=== PATIENT | female | born 1995 | race Caucasian/White ===

== ENCOUNTER 2017-09-01 15:43 | Emergency (ER) | payer BC, OTHER ==
[2017-09-01 15:47] VITALS: BP 141/91; PULSE 92; RESP 16; TEMP 98.1; O2SAT 97
--- NOTE | 2017-09-01 16:14 | EDPHY ---
H & P Stated Complaint: Slipped on ice;hit head. No LOC;wants to get checked out - Personal History LMP (Females 10-55): Now Current Tetanus Diphtheria and Acellular Pertussis (TDAP): Yes Tetanus Vaccine Date: < 10 YEARS - Medical/Surgical History Hx Asthma: No Hx Chronic Respiratory Disease: No Hx Diabetes: No Hx Cardiac Disease: No Hx Renal Disease: No Hx Cirrhosis: No Hx Alcoholism: No Hx HIV/AIDS: No Hx Splenectomy or Spleen Trauma: No Other PMH: ANXIETY. concussions in the past - Social History Smoking Status: Never smoked Time Seen by Provider: 09/01/17 15:59 HPI/ROS: CHIEF COMPLAINT: Slipped on ice, hit left occiput HISTORY OF PRESENT ILLNESS: 22-year-old female with history of multiple blunt traumatic head injuries in the past, no history of CT imaging of the head, no intracranial hemorrhage history,, was walking to work this morning, slipped on the ice and fell backward impacting the left occiput of her head. No loss of consciousness. Approximately an hour developed a non thunderclap headache which is not become progressively worse but does continue. She is complaining of non thunderclap headache, she is complaining of photophobia. She denies: Vomiting, nausea, midline C-spine pain, alcohol or drug use at time of incident , amnesia REVIEW OF SYSTEMS: A ten point review of systems was performed and is negative with the exception of the items mentioned in the HPI PAST MEDICAL/SURGICAL HISTORY: No anticoagulant use. SOCIAL HISTORY: denies alcohol use at time of incident PHYSICAL EXAM 1) GENERAL: Well-developed, well-nourished, alert and oriented. GCS 15 Answering questions appropriately. 2) HEAD: Normocephalic, atraumatic 3) HEENT: Wearing sunglasses, sunglasses removed. Positive photophobia. Pupils equal, round, reactive to light bilaterally. Negative Horners. Nasopharynx, oropharynx, clear. No deformity or angulation of nose. No septal hematoma. No rhinorrhea. No oral trauma. Ears bilaterally with normal tympanic membranes. No hemotympanum. No fluid or blood in the external auditory canal. No raccoon eyes. No Gonzalez sign. Teeth are normally aligned with no gross malocclusion, TMJ bilaterally nontender, facial bones nontender including the zygomatic arch, maxilla mandible. 4) NECK: No cervical collar is on. Posterior cervical spine is nontender, no stepoff, no effusion. Full range of motion which does not elicit any midline cervical spine pain, no posterior midline tenderness, no step-off. 5) LUNGS: Clear to auscultation bilaterally, no wheezes, no rhonchi, no retractions. No obvious signs of trauma. No chest wall pain. No flaring, no grunting. Moving symmetrically. No crepitus. 6) HEART: [Regular rate and rhythm, 7) ABDOMEN: No guarding, no rebound, no focal tenderness, no peritoneal signs, no signs of trauma, no ecchymosis 8) MUSCULOSKELETAL: Moving all extremities, no focal areas of tenderness, no obvious trauma. 9) BACK: Patient logrolled while holding inline traction.No midline vertebral tenderness, no fluctuance, no step-off, no obvious trauma, no visual or palpable abnormality. 10) SKIN: No laceration. No abrasion 11) NEURO: Awake, alert, and oriented to person, place and time. Answers questions appropriately. There were no obvious focal neurologic abnormalities. No cerebellar dysfunction. Cranial nerves 2 through to 12 intact. Normal steady gait. Upper and lower extremities bilaterally with strength 5 / 5, reflexes 2+. DIFFERENTIAL DIAGNOSIS: Not necessarily in any particular order, my differential diagnosis includes, but is not limited to, concussion, skull fracture, intraparenchymal contusion, subarachnoid, subdural and epidural hematoma. The patient understands that this diagnosis is provisional and can never be 100% accurate. (Steve Merlos) Constitutional: Initial Vital Signs Temperature (C) 36.7 C 09/01/17 15:45 Heart Rate 92 09/01/17 15:45 Respiratory Rate 16 09/01/17 15:45 Blood Pressure 141/91 H 09/01/17 15:45 O2 Sat (%) 97 09/01/17 15:45 O2 Delivery Mode Room Air Allergies/Adverse Reactions: PENICILLIN Allergy (Intermediate, Uncoded 09/01/17 15:44) Hives Home Medications: Medication Instructions Recorded Control Pills 09/01/17 FLUoxetine [PROzac] 10 mg PO 09/01/17 Medical Decision Making ED Course/Re-evaluation: 4:12 p.m.: This patient has understandably expressed concern over history of multiple head injuries all do traumatic mechanisms, no history of CT imaging the head, no history of intracranial hemorrhage or skull fracture. We discussed the potential long-term complications of multiple blunt head injuries. At this time she has negative Posey head CT imaging rules, no evidence of a basilar skull fracture, low index of suspicion for open or depressed skull fracture, no vomiting, GCS 15. I therefore do not think that the benefits of CT imaging outweigh the risks. She did however requests to speak with her mother via telephone. Care of patient under supervision of secondary supervising physician Dr Roberta Leon. 4:30 p.m.: Patient requested I speak with her mother via telephone. The patient consented to disclose medical information to her mother. Spoke with mother at this time on the patient's cell phone. After lengthy discussion with the patient mother, they are agreement about my recommendation is an feel comfortable being discharged with usual and customary head injury precautions and instructions. (Steve Merlos) Other Provider: The patient was evaluated and managed by the Physician Clerk Rating. My co- signature indicates that I have reviewed this chart and I agree with the findings and plan of care as documented. I am the secondary supervising physician. (Roberta Leon) Departure - Departure Disposition: Home, Routine, Self-Care Clinical Impression: Head injury, Fall from slipping on ice Condition: Good Instructions: Head Injury (ED) Additional Instructions: ALTHOUGH THERE IS NO EVIDENCE OF SERIOUS HEAD INJURY AT THIS TIME, DELAYED SIGNS CAN APPEAR 24 TO 48 HOURS AFTER INJURY. PLEASE RETURN TO THE EMERGENCY DEPARTMENT (ED) IMMEDIATELY IF YOU HAVE INCREASED HEADACHE, PERSISTENT HEADACHE , VOMITING, WEAKNESS, CONFUSION OR VISUAL PROBLEMS. WE RECOMMEND THAT YOU DO NOT RESUME CONTACT SPORTS OR ACTIVITIES THAT TAKE COORDINATION OR BALANCE SUCH SKIING OR RIDING A BICYCLE UNTIL CLEARED TO DO SO BY YOUR DOCTOR OR BY A NEUROLOGIST. Referrals: Latoya Fang MD [Medical Doctor] - 2-3 days, call for appt.
== END 2017-09-01 16:38 | disposition home or self-care (01) ==
DX: S09.90XA Unspecified injury of head, initial encounter (principal); W01.198A Fall on same level from slipping, tripping and stumbling with subsequent striking against other object, initial encounter; Y99.8 Other external cause status; Y93.01 Activity, walking, marching and hiking

== ENCOUNTER 2018-09-03 03:04 | Emergency (ER) | payer OTHER ==
--- NOTE | 2018-09-03 03:25 | EDPHY ---
H & P Stated Complaint: WOKE 1 HR AGO WITH RLQ PAIN, Time Seen by Provider: 09/03/18 03:15 HPI/ROS: Chief Complaint: Abdominal pain HPI: 23-year-old woman woke this morning with right lower abdominal pain. Patient has been having some abdominal cramping for the last few days. She thought that was secondary to her menstrual. Which is due in 1 week. She then had developed onset of severe right sided mid abdominal pain. Some nausea no vomiting. No fevers or chills. It hurts to move or walk. No vaginal discharge or bleeding. Does not believe she is . No fevers or chills. No cough. ROS: 10 systems were reviewed and were negative except those elements noted in the HPI. PMH: Anxiety Social History: No smoking Family History: non-contributory Physical Exam: Gen: Awake, Alert, No Distress HEENT: Nose: no rhinorrhea Eyes: PERRLA, EOMI Mouth: Moist mucosa Neck: Supple, no JVD Chest: nontender, lungs clear to auscultation Heart: S1, S2 normal, no murmur Abd: Soft, moderate right mid abdominal tenderness, no adnexal tenderness, no guarding Back: no CVA tenderness, no midline tenderness Ext: no edema, non-tender Skin: no rash Neuro: CN II-XII intact, Sensation grossly intact, Strength 5/5 in bilateral upper and lower extremities - Personal History LMP (Females 10-55): 15-21 Days Ago Current Tetanus/Diphtheria Vaccine: Yes Current Tetanus Diphtheria and Acellular Pertussis (TDAP): Yes Tetanus Vaccine Date: < 10 YEARS - Medical/Surgical History Hx Asthma: No Hx Chronic Respiratory Disease: No Hx Diabetes: No Hx Cardiac Disease: No Hx Renal Disease: No Hx Cirrhosis: No Hx Alcoholism: No Hx HIV/AIDS: No Hx Splenectomy or Spleen Trauma: No Other PMH: ANXIETY. concussions in the past - Social History Smoking Status: Never smoked Constitutional: Initial Vital Signs Temperature (C) 36.8 C 09/03/18 03:10 Heart Rate 92 09/03/18 03:10 Respiratory Rate 18 09/03/18 03:10 Blood Pressure 133/92 H 09/03/18 03:10 O2 Sat (%) 97 09/03/18 03:10 O2 Delivery Mode Room Air Allergies/Adverse Reactions: PENICILLIN Allergy (Intermediate, Uncoded 09/03/18 03:12) Hives Home Medications: Medication Instructions Recorded Control Pills 09/01/17 FLUoxetine [PROzac] 10 mg PO 09/01/17 Medical Decision Making - Diagnostics Imaging Results: Right lower quadrant ultrasound shows a nonvisualized appendix with mildly enlarged lymph nodes in the right lower quadrant. Study interpreted by Dr. Debby Patel, direct Radiology. ED Course/Re-evaluation: 23-year-old with right side abdominal pain. No adnexal tenderness. HCG is positive but her quantitative is only 75. For below the discriminatory zone were expect to see anything on ultrasound. She will need repeat HCG in 2 days for recheck. I am awaiting the right lower quadrant ultrasound results. Abdomen is soft and otherwise benign. Ultrasound is negative. She is not leukocytosis. Repeat exam shows a soft benign abdomen. She does have some stool in the cecum and some lymph nodes. Plan will be for discharge with follow-up with her OBGYN in 2 days for recheck of her quantitative HCG. She will return sooner for pain is not improved. Do not have a clear picture of the cause of her abdominal pain at this time. IVC cannot be obtaining a CT scan given her status. Her exam and laboratory evaluations reassuring. She has been cautioned to return in 12-24 hours for recheck if symptoms are not improving. - Data Points Laboratory Results: Laboratory Results 09/03/18 03:20 09/03/18 03:20 09/03/18 09/03/18 09/03/18 03:20 03:20 03:20 WBC 8.62 10^3/uL 10^3/uL (3.80-9.50) RBC 4.51 10^6/uL 10^6/uL (4.18-5.33) Hgb 14.0 g/dL g/dL (12.6-16.3) Hct 41.0 % % (38.0-47.0) MCV 90.9 fL fL (81.5-99.8) MCH 31.0 pg pg (27.9-34.1) MCHC 34.1 g/dL g/dL (32.4-36.7) RDW 12.4 % % (11.5-15.2) Plt Count 325 10^3/uL 10^3/uL (150-400) MPV 11.1 fL fL (8.7-11.7) Neut % (Auto) 43.9 % % (39.3-74.2) Lymph % (Auto) 44.0 % % (15.0-45.0) [place] % (Auto) 8.0 % % (4.5-13.0) Eos % (Auto) 3.4 % % (0.6-7.6) Baso % (Auto) 0.5 % % (0.3-1.7) Nucleat RBC Rel Count 0.0 % % (0.0-0.2) Absolute Neuts (auto) 3.79 10^3/uL 10^3/uL (1.70-6.50) Absolute Lymphs (auto) 3.79 10^3/uL H 10^3/uL (1.00-3.00) Absolute Monos (auto) 0.69 10^3/uL 10^3/uL (0.30-0.80) Absolute Eos (auto) 0.29 10^3/uL 10^3/uL (0.03-0.40) Absolute Basos (auto) 0.04 10^3/uL 10^3/uL (0.02-0.10) Absolute Nucleated RBC 0.00 10^3/uL 10^3/uL (0-0.01) Immature Gran % 0.2 % % (0.0-1.1) Immature Gran # 0.02 10^3/uL 10^3/uL (0.00-0.10) Sodium 138 mEq/L mEq/L (135-145) Potassium 4.1 mEq/L mEq/L (3.5-5.2) Chloride 107 mEq/L mEq/L (97-110) Carbon Dioxide 20 mEq/l L mEq/l (22-31) Anion Gap 11 mEq/L mEq/L (6-14) BUN 12 mg/dL mg/dL (7-23) Creatinine 0.6 mg/dL mg/dL (0.6-1.0) Estimated GFR > 60 Glucose 91 mg/dL mg/dL (70-100) Calcium 9.1 mg/dL mg/dL (8.5-10.4) Total Bilirubin 0.3 mg/dL mg/dL (0.1-1.4) AST 25 IU/L IU/L (14-46) ALT 30 IU/L IU/L (9-52) Alkaline Phosphatase 44 IU/L IU/L (38-126) Total Protein 7.4 g/dL g/dL (6.3-8.2) Albumin 4.4 g/dL g/dL (3.5-5.0) Beta HCG, Qual POSITIVE Beta HCG, Quant 75.07 mIU/mL H mIU/mL (0.00-4.83) Medications Given: Discontinued Medications Sodium Chloride (Ns) 1,000 mls @ 0 mls/hr IV ONCE ONE; Wide Open PRN Reason: Protocol Stop: 09/03/18 03:37 Last Admin: 09/03/18 03:46 Dose: 1,000 mls Ketorolac Tromethamine (Toradol) 15 mg IVP EDNOW ONE Stop: 09/03/18 03:37 Last Admin: 09/03/18 03:45 Dose: 15 mg Ondansetron HCl (Zofran) 4 mg IVP EDNOW ONE Stop: 09/03/18 03:37 Last Admin: 09/03/18 03:45 Dose: 4 mg Departure - Departure Disposition: Home, Routine, Self-Care Clinical Impression: Abdominal pain, Condition: Good Instructions: (ED), Acute Abdominal Pain (ED) Additional Instructions: Follow up with your OBGYN in 2 days for recheck of your HCG level. Return to the emergency department in 12-24 hours of a you're abdominal pain is not improving. Referrals: Mast,Manuel, DO [Primary Care Provider] - As per Instructions
[2018-09-03] MEDS ORDERED: ONDANSETRON 4 MG/2 ML VIAL IVP ONE (03:36)
[2018-09-03] MEDS ORDERED: KETOROLAC 15 MG/1 ML SDV IVP ONE (03:36)
[2018-09-03] MEDS ORDERED: NS 1,000 ML IV ONE (03:36)
[2018-09-03 03:43] LABS: PLATELET COUNT 325 10^3/uL (150-400)
[2018-09-03 05:07] VITALS: BP 120/66
== END 2018-09-03 05:06 | disposition home or self-care (01) ==
DX: R10.31 Right lower quadrant pain (principal); R59.0 Localized enlarged lymph nodes; E86.9 Volume depletion, unspecified
CPT/HCPCS: 96374; J1885; J2405

== ENCOUNTER → 2018-09-04 | Outpatient (CLI) | payer OTHER | LOC: FIMAGING 15:00 | PROVIDERS: ATTEND Midwife | DX: O20.0 Threatened abortion (principal); Z3A.01 Less than 8 weeks gestation of pregnancy ==